=== PATIENT | female | born 1985 | race Caucasian/White ===

== ENCOUNTER 2018-10-01 13:35 | Inpatient (IN) | payer SELFPAY ==
[2018-10-05] MEDS ORDERED: BUTORPHANOL 1 MG/ML INJ IV PRN (01:46)
[2018-10-05] MEDS ORDERED: METHYLERGONOVINE 0.2MG/ML AMP IM PRN ×2 (01:46→06:37)
[2018-10-05] MEDS ORDERED: Ringers Lactate 1,000 ML IV PRN (01:46)
[2018-10-05] MEDS ORDERED: PROMETHAZINE 25 MG/ML VIAL IV PRN (01:46)
[2018-10-05] MEDS ORDERED: CARBOPROST TROME 250 MCG/ML IM PRN ×2 (01:46→06:37)
[2018-10-05 01:54] VITALS: BMI 25.8
[2018-10-05] MEDS ORDERED: OXYTOCIN/LR 20 UNIT/1,000 ML BAG IV SCH ×2 (02:00→07:00)
[2018-10-05] MEDS ORDERED: Ringers Lactate 1,000 ML IV SCH (02:00)
[2018-10-05 02:29] LABS: RPR Titer ND
[2018-10-05 02:34] LABS: Absolute Lymphocytes (CBC) 1.6 K/uL (0.7-4.9); Absolute Monocytes 0.6 K/uL (0.1-1.3); Absolute Neutrophil 7.8 K/uL (1.8-8.0); Basophils % 0.4 % (0-1.3); Eosinophils % 0.2 % (0-4.4); Hematocrit 36.9 % (36.0-45.0); Monocytes % 5.5 % (3.3-12.3); RBC Red Blood Cell Count 4.09 M/uL (3.86-4.86)
[2018-10-05] MEDS ORDERED: LIDOCAINE 1% MPF 30 ML VIAL SQ ONE (02:45)
--- NOTE | 2018-10-05 04:58 | PREOPHP ---
Date of Admission: 10/05/2018 History Of Present Illness: Ms. Abrams is a 33-year-old female, 5, para 2-1- 0-3 with now 40+ weeks gestation. She has been followed by Dr. Whittington during this without a pparent problems. She noted leaking of fluid began approximately 10 p.m. this evening and presents t o Labor and Delivery for evaluation with mild contractions. Past Medical History: Please see record. Family History: Please see record. Review of Systems: She reports no recent cough, cold, fever, or chills. No recent nausea or vomiting. She denies any b reast lumps. Baby has been active. She denies any urine symptoms. She denies any recurring bowel p roblems. Physical Examination: General: Reveals a pleasant female, in no apparent distress. Neck: Supple without adenopathy or thyromegaly. Lungs: Clear. Cardiac: Regular rate and rhythm without murmurs. Breasts: Not examined. Abdomen: Nontender with mildly irregular contractions, perhaps every 5 minutes. Estimated lewis ght 6+ to 7+ pounds. Pelvic: Nursing exam, the patient is 3+ cm dilated, completely effaced, at 0 station. Extremities: No cyanosis, clubbing, or edema. Impression: 40+ week , spontaneous rupture of membrane, not in active labor. Plan: We will observe for the next couple of hours. If more regular labor pattern does not ensue, w e will augment with Pitocin. MARION/CATHERINE Voice ID: [id number]
[2018-10-05] MEDS ORDERED: IBUPROFEN 200 MG TAB PO PRN (06:37)
[2018-10-05] MEDS ORDERED: METHYLERGONOVINE 0.2 MG TAB PO PRN (06:37)
[2018-10-05] MEDS ORDERED: ONDANSETRON 4 MG (ODT) TAB PO PRN (06:37)
--- NOTE | 2018-10-05 06:41 | P.BOP ---
Preoperative diagnosis: 40+ , SPROM Postoperative diagnosis: Same, delivery viable male , non-sterile, controlled Primary procedure: SCVD Secondary procedure: Repair, midline second degree laceration Estimated blood loss: 250ml Anesthesia: Local (for repair of laceration) Complications: Other (non-sterile delivery) Transferred to: Other (274) Condition: Good
[2018-10-05] MEDS: Oxycodone HCl/Acetaminophen 1 TAB TAB PO PRN ×2 (11:55→20:08)
--- NOTE | 2018-10-05 11:58 | OP ---
Surgeon: Satya Dick MD Ms. Abrams is a 33-year-old, , female, 5, para 2-1-1-3, at 40+ weeks gestation , admitted with spontaneous rupture of membranes and prodromal labor, noted to be approximately 3 cm dilated. After 5 hours of observation, she had only progressed to approximately 4+ to 5 cm and was h aving very irregular contractions. Because of this, Pitocin augmentation was begun. She went rapidl y over the next half hour to 45 minutes to a spontaneous controlled nonsterile delivery of a 7-pound 14-ounce male infant, after delayed cord clamping, the cord was clamped, cut, and the placed o n mother's upper abdomen. Cord blood was obtained. Placenta was spontaneously expelled and appeared to be intact. Intrauterine examination revealed no retained placental fragments. The patient suffe red a midline second-degree perineal laceration at the time of delivery. This was repaired utilizing local infiltration with 1% Xylocaine and 3-0 Vicryl suture in the usual fashion. Estimated total bl ood loss was approximately 250 cc. Apgars were 9 and 9. MARION/CATHERINE Voice ID: [id number] Report ID: [id number]
[2018-10-06 00:14] LABS: RPR (Rapid Plasma Reagin) NON-REACT (NON-REACT)
[2018-10-06] MEDS: Oxycodone HCl/Acetaminophen 1 TAB TAB PO PRN ×2 (01:17→06:55)
[2018-10-06 07:17] VITALS: BP 119/76; TEMP 97.7
[2018-10-06] MEDS ORDERED: Tdap (Diph,Pertuss(Acell),Tet Vac) 0.5 ML SYR IMVAC ONE (08:00)
--- NOTE | 2018-10-06 08:20 | DS ---
Hospital Discharge Diagnosis: 40+ week , delivered. Complications: Second-degree midline perineal laceration. Procedures: Spontaneous controlled vaginal delivery of viable male infant, repair of second-degree p erineal laceration. Hospital Course: The patient is a 33-year-old female, 5, para 2-1-1-3 at 4 0+ weeks gestation, admitted in prodromal labor with spontaneous rupture of membrane. She had an une ventful labor and delivery of a 7-pound 14-ounce male infant, 9 and 9. She was dismissed on first day, ambulatory, on a select diet with routine post vaginal delivery activity rest rictions, to be seen back by Dr. Whittington for care. She is Rh positive blood type, rubella i mmune, was dismissed with a prescription for Tylenol No. 3, #15. Lab work included an admission hemo globin and hematocrit of 12.9 and 36.9. Dismissal hematocrit of 35.0. She is again Rh positive bloo d type. MARION/CATHERINE Voice ID: [id number] Report ID: [id number]
[2018-10-10 05:15] LABS: HBsAG Nonreactive (Nonreactive)
== END 2018-10-06 10:35 | disposition home or self-care (01) | DRG 807 ==
LOC: 2ND-WC 10-05 01:19
PROVIDERS: ADMIT Specialist; ATTEND Student in an Organized Health Care Education/Training Program
PROC: 10E0XZZ Delivery of Products of Conception, External Approach (ICD-10-PCS; principal; 2018-10-05)
PROC: 0KQM0ZZ Repair Perineum Muscle, Open Approach (ICD-10-PCS; 2018-10-05)
DX: O70.1 Second degree perineal laceration during delivery (principal); Z37.0 Single live birth; Z3A.40 40 weeks gestation of pregnancy
CPT/HCPCS: 36415; 85014; 85025; 86592; 86901; 87340; 90715; J2210; J2590